=== PATIENT | female | born 1945 | race African-American/Black ===

== ENCOUNTER 2023-05-06 13:56 | Emergency (ER) | payer MEDICARE ==
[~2023-05-06] VITALS: Ht 165.1 cm; Wt 65.8 kg
[~2023-05-06 13:56] MED LIST: BISACODYL10 MG R; CARVEDILOL25 MG PO; Carafate1 GM/10 ML PEG; FLEET ENEMA EX230 M1 R; GLUCAGON EMERGEN1 M1 IJ; HEPARIN SO5000 UNIT4 IJ; HUMALOG JU100 UNIT/1 SQ; Ipratropium Brom3 ML INH; JUVEN PACKET1 EACH PEG; LANTUS SOL100 UNIT/1 SC; LEVOFLOXACIN500 MG PO; LEVOFLOXACIN750 M2 PO; LIDOCAINE1 EACH TD; LINEZOLID600 MG PO; MEROPENEM-500 MG/50 IV; MILK OF MA400 MG/51 PO; ONDANSETRON HYDR4 M1 PEG; PANTOPRAZOLE SO40 MG PO; PREDNISONE5 MG PEG; QUETIAPINE FUMA25 M1 PEG; SENNA8.6 MG PEG; SERTRALINE HYDR50 MG PEG; TYLENOL325 M1 PO; VENTOLIN 02.5 MG/3 M INH
== END 2023-05-07 00:33 | disposition short-term general hospital (02) ==
LOC: ED 13:56
DX: N99.522 Malfunction of incontinent external stoma of urinary tract (principal); J18.9 Pneumonia, unspecified organism; M54.50 Low back pain, unspecified; M54.2 Cervicalgia; E11.9 Type 2 diabetes mellitus without complications; I50.9 Heart failure, unspecified; Z87.442 Personal history of urinary calculi; Z98.890 Other specified postprocedural states; Y83.9 Surgical procedure, unspecified as the cause of abnormal reaction of the patient, or of later complication, without mention of misadventure at the time of the procedure